=== PATIENT | female | born 1995 | race Caucasian/White ===

== ENCOUNTER 2017-07-08 20:46 | Emergency (ER) | payer MEDICAID ==
[~2017-07-08] VITALS: Ht 160 cm; Wt 65.0 kg
[~2017-07-08 20:46] MED LIST: ACET-1008 PO; ALBU6.7H INH; GUAI120015 PO; LACT1TAB13 PO; PANT20TA2 PO; PANT40SU2 PO
[2017-07-08 23:01] VITALS: BP 113/74
== END 2017-07-08 23:49 | disposition home or self-care (01) ==
LOC: ER 20:47
DX: M77.9 Enthesopathy, unspecified (principal); J45.909 Unspecified asthma, uncomplicated; G89.29 Other chronic pain; F12.10 Cannabis abuse, uncomplicated; Z79.899 Other long term (current) drug therapy
CPT/HCPCS: 99281

== ENCOUNTER 2018-02-12 14:06 | Emergency (ER) | payer MEDICAID ==
[~2018-02-12] VITALS: Ht 160 cm; Wt 57.0 kg
[2018-02-12 14:16] VITALS: BP 97/44
[2018-02-12 14:51] LABS: URINE HCG POSITIVE (NEG)
== END 2018-02-12 15:33 | disposition home or self-care (01) ==
LOC: ER 14:07
DX: O46.91 Antepartum hemorrhage, unspecified, first trimester (principal); J45.909 Unspecified asthma, uncomplicated; G89.29 Other chronic pain; F12.90 Cannabis use, unspecified, uncomplicated; Z3A.01 Less than 8 weeks gestation of pregnancy; Z79.899 Other long term (current) drug therapy
CPT/HCPCS: 81025; 99283

== ENCOUNTER 2018-02-13 22:01 | Emergency (ER) | payer MEDICAID ==
[~2018-02-13] VITALS: Ht 160 cm; Wt 59.0 kg
[2018-02-13 22:29] LABS: BASOPHILS % (AUTO) 0.4 % (0-1); EOSINOPHILS # (AUTO) 0.1 X10'3 (0-0.9); EOSINOPHILS % (AUTO) 1.5 % (0-6); HEMATOCRIT 39.4 % (35.0-45.0); HEMOGLOBIN 13.5 g/dl (12.0-16.0); LYMPHOCYTES % (AUTO) 23.2 % (21-51); MEAN CORPUSCULAR HEMOGLOBIN 29.7 PG (27.0-31.0); MEAN CORPUSCULAR HGB CONC 34.3 % (33.0-36.5); MEAN CORPUSCULAR VOLUME 86.7 FL (78-98); MEAN PLATELET VOLUME 7.3 FL (7.4-10.4); MONOCYTES # (AUTO) 0.3 X10'3 (0-0.9); MONOCYTES % (AUTO) 3.8 % (2-12); NEUTROPHILS # (AUTO) 6.1 X10'3 (1.8-7.7); NEUTROPHILS % (AUTO) 71.1 % (42-75); PLATELET COUNT 283 X10'3 (140-440); RED BLOOD COUNT 4.55 X10'6 (4.20-5.60); RED CELL DISTRIBUTION WIDTH 12.5 % (11.5-14.5); WHITE BLOOD COUNT 8.6 X10'3 (4.5-11.0)
[2018-02-13 23:23] VITALS: BP 119/81
== END 2018-02-13 23:26 | disposition home or self-care (01) ==
LOC: ER 22:02
DX: O46.91 Antepartum hemorrhage, unspecified, first trimester (principal); O26.851 Spotting complicating pregnancy, first trimester; J45.909 Unspecified asthma, uncomplicated; G89.29 Other chronic pain; F12.90 Cannabis use, unspecified, uncomplicated; Z79.899 Other long term (current) drug therapy; Z3A.01 Less than 8 weeks gestation of pregnancy
CPT/HCPCS: 36415; 76801; 85025; 99285

== ENCOUNTER 2018-02-17 08:21 | Emergency (ER) | payer MEDICAID ==
[~2018-02-17] VITALS: Ht 162.6 cm; Wt 55.0 kg
[2018-02-17 08:27] VITALS: BP 90/56
[2018-02-17] MEDS ORDERED: ketorolac trometh inj. 60 MG/2 ML VIAL IM ONE (09:40)
== END 2018-02-17 10:26 | disposition home or self-care (01) ==
LOC: ER 08:22
DX: O20.0 Threatened abortion (principal); O26.891 Other specified pregnancy related conditions, first trimester; J45.909 Unspecified asthma, uncomplicated; G89.29 Other chronic pain; O9A.211 Injury, poisoning and certain other consequences of external causes complicating pregnancy, first trimester; F12.90 Cannabis use, unspecified, uncomplicated; Z79.899 Other long term (current) drug therapy; Z3A.01 Less than 8 weeks gestation of pregnancy
CPT/HCPCS: 36415; 84702; 96372; 99283; J1885

== ENCOUNTER 2018-05-20 19:22 | Emergency (ER) | payer MEDICAID ==
[~2018-05-20] VITALS: Ht 160 cm; Wt 58.0 kg
[2018-05-20 19:28] VITALS: BP 95/54
--- NOTE | 2018-05-20 20:20 | NUR ---
pt asked to provide urine specimen. states she is unable to void. she is drinking water to help promote a void
[2018-05-20 21:31] LABS: URINE HCG NEGATIVE (NEG)
[2018-05-20 21:35] LABS: CLARITY,URINE CLEAR (Clear); COLOR,URINE YELLOW (Yellow); GLUCOSE, URINE NEGATIVE (Neg); KETONES,URINE TRACE mg/dl (Neg); LEUKOCYTE ESTERASE ,URINE NEGATIVE (Neg); NITRITES, URINE NEGATIVE (Neg); OCCULT BLOOD,URINE NEGATIVE (Neg); PROTEIN,URINE NEGATIVE (Neg); UA COLLECTION TYPE CLN CATCH MIDSTREAM; UROBILINOGEN,URINE 0.2 E.U/dL (0.2-1.0)
== END 2018-05-20 22:26 | disposition home or self-care (01) ==
LOC: ER 19:22
DX: Z32.02 Encounter for pregnancy test, result negative (principal); J45.909 Unspecified asthma, uncomplicated; G89.29 Other chronic pain; F17.210 Nicotine dependence, cigarettes, uncomplicated; F12.90 Cannabis use, unspecified, uncomplicated
CPT/HCPCS: 36415; 81003; 81025; 84702; 99283

== ENCOUNTER 2018-10-02 19:04 | Emergency (ER) | payer MEDICAID ==
[~2018-10-02] VITALS: Ht 160 cm; Wt 59.0 kg
[2018-10-02 19:28] VITALS: BP 101/47
[2018-10-02] MEDS ORDERED: ACET-2119 PO (20:12)
[2018-10-02] MEDS ORDERED: ONDA4TAB6 PO (20:12)
[2018-10-02] MEDS ORDERED: IBUP-1985 PO (20:12)
[2018-10-02] MEDS ORDERED: ibuprofen tablet 400 MG TABLET PO ONE (20:30)
== END 2018-10-02 21:03 | disposition home or self-care (01) ==
LOC: ER 19:05
DX: S20.229A Contusion of unspecified back wall of thorax, initial encounter (principal); G89.29 Other chronic pain; F12.10 Cannabis abuse, uncomplicated; J45.909 Unspecified asthma, uncomplicated; R51 Headache; M25.561 Pain in right knee; W01.0XXA Fall on same level from slipping, tripping and stumbling without subsequent striking against object, initial encounter; Y93.89 Activity, other specified; Y92.89 Other specified places as the place of occurrence of the external cause; Y99.8 Other external cause status
CPT/HCPCS: 99282

== ENCOUNTER 2019-03-07 19:07 | Emergency (ER) | payer MEDICAID ==
[~2019-03-07] VITALS: Ht 170.2 cm; Wt 59.1 kg
[~2019-03-07 19:07] MED LIST changes: -ALBU6.7H INH; +ALBU6.7H9 INH; +LIDOcaine 1% w/EPI 1:100,000 30ml vial (MDV) ONE
[2019-03-07] MEDS ORDERED: SULF1TAB49 PO (21:00)
[2019-03-07 21:44] VITALS: BP 108/56
== END 2019-03-07 21:46 | disposition home or self-care (01) ==
LOC: ER 19:08
DX: L02.31 Cutaneous abscess of buttock (principal); J45.909 Unspecified asthma, uncomplicated; G89.29 Other chronic pain; F12.90 Cannabis use, unspecified, uncomplicated; Z79.899 Other long term (current) drug therapy
CPT/HCPCS: 10060; 99283

== ENCOUNTER 2019-03-27 18:06 | Emergency (ER) | payer MEDICAID ==
[~2019-03-27] VITALS: Ht 162.6 cm; Wt 59.9 kg
[~2019-03-27 18:06] MED LIST changes: -LIDOcaine 1% w/EPI 1:100,000 30ml vial (MDV) ONE
[2019-03-27 18:37] LABS: URINE HCG NEGATIVE (NEG)
[2019-03-27 18:39] LABS: CLARITY,URINE CLEAR (Clear); COLOR,URINE YELLOW (Yellow); GLUCOSE, URINE NEGATIVE (Neg); KETONES,URINE NEGATIVE (Neg); LEUKOCYTE ESTERASE ,URINE NEGATIVE (Neg); NITRITES, URINE NEGATIVE (Neg); OCCULT BLOOD,URINE NEGATIVE (Neg); PROTEIN,URINE NEGATIVE (Neg)
[2019-03-27 18:48] LABS: BASOPHILS % (AUTO) 0.5 % (0-1); EOSINOPHILS # (AUTO) 0.1 X10'3 (0-0.9); EOSINOPHILS % (AUTO) 1.5 % (0-6); HEMATOCRIT 41.4 % (35.0-45.0); HEMOGLOBIN 14.2 g/dl (12.0-16.0); LYMPHOCYTES # (AUTO) 2.3 X10'3 (1.1-4.8); LYMPHOCYTES % (AUTO) 27.2 % (21-51); MEAN CORPUSCULAR HEMOGLOBIN 30.3 PG (27.0-31.0); MEAN CORPUSCULAR HGB CONC 34.2 g/dL (33.0-36.5); MEAN CORPUSCULAR VOLUME 88.6 FL (78-98); MEAN PLATELET VOLUME 7.4 FL (7.4-10.4); MONOCYTES # (AUTO) 0.8 X10'3 (0-0.9); MONOCYTES % (AUTO) 8.8 % (2-12); NEUTROPHILS # (AUTO) 5.3 X10'3 (1.8-7.7); PLATELET COUNT 252 X10'3 (140-440); RED BLOOD COUNT 4.68 X10'6 (4.20-5.60); RED CELL DISTRIBUTION WIDTH 13.6 % (11.5-14.5); WHITE BLOOD COUNT 8.5 X10'3 (4.5-11.0)
[2019-03-27 18:53] LABS: UA COLLECTION TYPE CLN CATCH MIDSTREAM
[2019-03-27 19:05] LABS: ALANINE AMINOTRANSFERASE 23 U/L (12-78); ALBUMIN 4.2 G/DL (3.4-5.0); ALBUMIN/GLOBULIN RATIO 1.4 (1.1-1.5); ALKALINE PHOSPHATASE 59 IU/L (46-116); ANION GAP 8 (8-16); ASPARTATE AMINO TRANSFERASE 15 U/L (10-37); BILIRUBIN,TOTAL 1.1 MG/DL (0.1-1.0); BLOOD UREA NITROGEN 16 MG/DL (7-18); CALCIUM 8.4 MG/DL (8.5-10.1); CHLORIDE 106 MMOL/L (99-107); GLUCOSE 96 MG/DL (70-104); POTASSIUM 3.8 MMOL/L (3.5-5.1); SODIUM 139 MMOL/L (135-145); TOTAL CARBON DIOXIDE 25.4 MMOL/L (24-32); TOTAL PROTEIN 7.3 G/DL (6.4-8.2); eGFR 88 ML/MIN
[2019-03-27 19:47] VITALS: BP 106/60
[2019-03-27] MEDS ORDERED: IBUP-1984 PO (20:49)
--- NOTE | 2019-03-27 21:53 | NUR ---
PT DISCHARGED. PT WAS STABLE. V/S. NO S/S OF RESP. DISTRESS. PT LEFT WITH FAMILY MEMBER. IV DC'D. PT TOLERATED WELL. SHE WAS PRESCRIBED IBUPROFIN. NO OTHER REQUEST OR CONCERNS AT THIS TIME.
== END 2019-03-27 21:54 | disposition home or self-care (01) ==
LOC: ER 18:07
DX: R10.2 Pelvic and perineal pain (principal); R10.31 Right lower quadrant pain; J45.909 Unspecified asthma, uncomplicated; G89.29 Other chronic pain; F12.90 Cannabis use, unspecified, uncomplicated; Z79.899 Other long term (current) drug therapy; Z79.1 Long term (current) use of non-steroidal anti-inflammatories (NSAID)
CPT/HCPCS: 36415; 76856; 80053; 81003; 81025; 85025; 99284

== ENCOUNTER 2019-05-13 20:57 | Emergency (ER) | payer MEDICAID ==
[~2019-05-13] VITALS: Ht 160 cm; Wt 60.9 kg
[2019-05-13 21:05] VITALS: BP 107/73
[2019-05-13 22:30] LABS: CLARITY,URINE CLEAR (Clear); COLOR,URINE YELLOW (Yellow); GLUCOSE, URINE NEGATIVE (Neg); KETONES,URINE NEGATIVE (Neg); LEUKOCYTE ESTERASE ,URINE SMALL (Neg); NITRITES, URINE NEGATIVE (Neg); OCCULT BLOOD,URINE NEGATIVE (Neg); PH,URINE 7.5 (4.8-8.0); PROTEIN,URINE NEGATIVE (Neg)
[2019-05-13 22:41] LABS: UA COLLECTION TYPE CLN CATCH MIDSTREAM
[2019-05-13 22:42] LABS: BACTERIA,URINE FEW /HPF (Neg); MUCUS STRANDS FEW /LPF (Neg); RBC,URINE NONE SEEN /HPF (0-2); SQUAMOUS EPITHELIAL CELL,UR FEW /LPF (FEW); WBC,URINE 0-4 /HPF (0-4)
--- NOTE | 2019-05-13 22:47 | NUR ---
Ultrasound is in the room with the patient.
== END 2019-05-14 | disposition home or self-care (01) ==
LOC: ER 20:58
DX: O20.0 Threatened abortion (principal); O99.511 Diseases of the respiratory system complicating pregnancy, first trimester; J45.909 Unspecified asthma, uncomplicated; O99.331 Smoking (tobacco) complicating pregnancy, first trimester; F12.90 Cannabis use, unspecified, uncomplicated; F17.200 Nicotine dependence, unspecified, uncomplicated; O99.321 Drug use complicating pregnancy, first trimester; O26.891 Other specified pregnancy related conditions, first trimester; G89.29 Other chronic pain; Z3A.01 Less than 8 weeks gestation of pregnancy; Z79.899 Other long term (current) drug therapy
CPT/HCPCS: 36415; 76801; 81001; 84702; 87088; 99284

== ENCOUNTER 2019-07-18 11:20 | Emergency (ER) | payer MEDICAID ==
[~2019-07-18] VITALS: Ht 160 cm; Wt 58.5 kg
[2019-07-18 11:21] VITALS: BP 100/55
[2019-07-18] MEDS ORDERED: LIDOcaine 1% W/epiNEPHrine 1:200,000 10ml vial IJ ONE (11:45)
[2019-07-18] MEDS ORDERED: CEPH250T PO (12:43)
== END 2019-07-18 13:21 | disposition home or self-care (01) ==
LOC: ER 11:20
DX: L02.31 Cutaneous abscess of buttock (principal); J45.909 Unspecified asthma, uncomplicated; G89.29 Other chronic pain; F12.90 Cannabis use, unspecified, uncomplicated; Z79.899 Other long term (current) drug therapy
CPT/HCPCS: 10060; 99283

== ENCOUNTER 2020-06-15 04:05 | Emergency (ER) | payer MEDICAID ==
[~2020-06-15] VITALS: Ht 160 cm; Wt 56.1 kg
[2020-06-15 04:13] VITALS: BP 96/61
[2020-06-15] MEDS ORDERED: LIDOcaine 1% W/epiNEPHrine 1:200,000 10ml vial IJ ONE (06:10)
[2020-06-15] MEDS ORDERED: DOXY1TAB3 PO (06:45)
[2020-06-15] MEDS ORDERED: acetaminophen 325mg tablet PO ONE (07:00)
== END 2020-06-15 07:14 | disposition home or self-care (01) ==
LOC: ER 04:06
DX: O98.811 Other maternal infectious and parasitic diseases complicating pregnancy, first trimester (principal); L05.01 Pilonidal cyst with abscess; R11.0 Nausea; H91.90 Unspecified hearing loss, unspecified ear; J45.909 Unspecified asthma, uncomplicated; F12.90 Cannabis use, unspecified, uncomplicated; G89.29 Other chronic pain; Z86.2 Personal history of diseases of the blood and blood-forming organs and certain disorders involving the immune mechanism; Z3A.10 10 weeks gestation of pregnancy
CPT/HCPCS: 10080; 99283

== ENCOUNTER 2020-07-03 16:32 | Emergency (ER) | payer MEDICAID ==
[~2020-07-03] VITALS: Ht 167.6 cm; Wt 61.4 kg
[~2020-07-03 16:32] MED LIST changes: +DOXY1TAB3 PO
[2020-07-03] MEDS ORDERED: ondansetron/PF 4mg/2ml inj IV ONE (17:05)
[2020-07-03] MEDS ORDERED: normal saline 1000ML IV soln IVB ONE (17:05)
[2020-07-03] MEDS ORDERED: OXYTOCIN IM ONE (17:05)
[2020-07-03] MEDS ORDERED: morphine 4 MG/ML inj SYRINge IV PRN (17:05)
[2020-07-03 17:19] LABS: BASOPHILS % (AUTO) 0.3 % (0-1); EOSINOPHILS # (AUTO) 0.1 X10'3 (0-0.9); EOSINOPHILS % (AUTO) 0.8 % (0-6); HEMATOCRIT 31.5 % (35.0-45.0); LYMPHOCYTES # (AUTO) 2.5 X10'3 (1.1-4.8); LYMPHOCYTES % (AUTO) 19.1 % (21-51); MEAN CORPUSCULAR HEMOGLOBIN 30.2 PG (27.0-31.0); MEAN CORPUSCULAR HGB CONC 35.1 g/dL (33.0-36.5); MEAN CORPUSCULAR VOLUME 86.1 FL (78-98); MEAN PLATELET VOLUME 7.9 FL (7.4-10.4); MONOCYTES # (AUTO) 0.7 X10'3 (0-0.9); MONOCYTES % (AUTO) 5.3 % (2-12); NEUTROPHILS # (AUTO) 9.9 X10'3 (1.8-7.7); NEUTROPHILS % (AUTO) 74.5 % (42-75); PLATELET COUNT 240 X10'3 (140-440); RED BLOOD COUNT 3.65 X10'6 (4.20-5.60); WHITE BLOOD COUNT 13.3 X10'3 (4.5-11.0)
[2020-07-03 17:33] LABS: ALANINE AMINOTRANSFERASE 19 U/L (12-78); ALBUMIN 3.7 G/DL (3.4-5.0); ALBUMIN/GLOBULIN RATIO 1.2 (1.1-1.5); ALKALINE PHOSPHATASE 65 IU/L (46-116); ANION GAP 12 (8-16); ASPARTATE AMINO TRANSFERASE 12 U/L (10-37); BILIRUBIN,TOTAL 0.7 MG/DL (0.1-1.0); BLOOD UREA NITROGEN 12 MG/DL (7-18); CALCIUM 8.9 MG/DL (8.5-10.1); CHLORIDE 104 MMOL/L (99-107); GLUCOSE 102 MG/DL (70-104); POTASSIUM 3.7 MMOL/L (3.5-5.1); SODIUM 138 MMOL/L (135-145); TOTAL CARBON DIOXIDE 22.5 MMOL/L (24-32); TOTAL PROTEIN 6.8 G/DL (6.4-8.2); eGFR > 90 ML/MIN
[2020-07-03] MEDS ORDERED: OXYTOCIN IV ONE (17:35)
[2020-07-03] MEDS ORDERED: NORMAL SALINE IV ONE (17:35)
[2020-07-03] MEDS ORDERED: methylergonovine maleate 0.2mg/ml amp IM ONE (17:45)
[2020-07-03 17:55] VITALS: BP 98/64
[2020-07-03 17:55] LABS: BETA HCG,QUANTITATIVE 4731 mIU/ml
--- NOTE | 2020-07-03 18:12 | NUR ---
[facility] transport at bedside.
--- NOTE | 2020-07-03 18:13 | NUR ---
[facility] emergency contact please call with update [phone]
== END 2020-07-03 18:54 | disposition short-term general hospital (02) ==
LOC: ER 18:15
DX: O72.1 Other immediate postpartum hemorrhage (principal); O03.4 Incomplete spontaneous abortion without complication; J45.909 Unspecified asthma, uncomplicated; G89.29 Other chronic pain; F12.90 Cannabis use, unspecified, uncomplicated; Z86.2 Personal history of diseases of the blood and blood-forming organs and certain disorders involving the immune mechanism; Z88.0 Allergy status to penicillin; Z79.899 Other long term (current) drug therapy
CPT/HCPCS: 36415; 76802; 80053; 84702; 85025; 85610; 86885; 86900; 86901; 86920; 96365; 96375; 99291; J2270; J2405; J2590; J7030; J7040

== ENCOUNTER 2020-10-07 17:58 | Emergency (ER) | payer MEDICAID ==
[~2020-10-07] VITALS: Ht 160 cm; Wt 59.7 kg
[2020-10-07 20:41] LABS: CLARITY,URINE CLEAR (Clear); COLOR,URINE YELLOW (Yellow); GLUCOSE, URINE NEGATIVE (Neg); KETONES,URINE NEGATIVE (Neg); LEUKOCYTE ESTERASE ,URINE TRACE (Neg); NITRITES, URINE NEGATIVE (Neg); OCCULT BLOOD,URINE NEGATIVE (Neg); PH,URINE 6.5 (4.8-8.0); PROTEIN,URINE TRACE mg/dl (Neg)
[2020-10-07 20:42] LABS: URINE HCG NEGATIVE (NEG)
[2020-10-07 20:45] LABS: UA COLLECTION TYPE CLN CATCH MIDSTREAM
[2020-10-07 20:49] LABS: BACTERIA,URINE FEW /HPF (Neg); MUCUS STRANDS MANY /LPF (Neg); RBC,URINE NONE SEEN /HPF (0-2); SQUAMOUS EPITHELIAL CELL,UR MODERATE /LPF (FEW)
--- NOTE | 2020-10-07 21:09 | NUR ---
US AT BEDTIME
[2020-10-07] MEDS ORDERED: METR70GE5 VG (21:58)
[2020-10-07 22:04] VITALS: BP 102/80
== END 2020-10-07 22:07 | disposition home or self-care (01) ==
LOC: ER 17:58
DX: N76.0 Acute vaginitis (principal); R10.31 Right lower quadrant pain; N93.9 Abnormal uterine and vaginal bleeding, unspecified; J45.909 Unspecified asthma, uncomplicated; G89.29 Other chronic pain; F12.90 Cannabis use, unspecified, uncomplicated; Z86.2 Personal history of diseases of the blood and blood-forming organs and certain disorders involving the immune mechanism; Z79.2 Long term (current) use of antibiotics; Z79.899 Other long term (current) drug therapy
CPT/HCPCS: 72170; 76856; 81001; 81025; 87088; 87210; 93976; 99285

== ENCOUNTER 2020-10-16 13:27 | Emergency (ER) | payer MEDICAID ==
[~2020-10-16] VITALS: Ht 157.5 cm; Wt 52.3 kg
[~2020-10-16 13:27] MED LIST changes: +METR70GE5 VG
[2020-10-16 14:14] VITALS: BP 96/64
[2020-10-16 14:44] LABS: URINE HCG NEGATIVE (NEG)
[2020-10-16 14:53] LABS: BASOPHILS % (AUTO) 0.3 % (0-1); EOSINOPHILS # (AUTO) 0.1 X10'3 (0-0.9); EOSINOPHILS % (AUTO) 0.7 % (0-6); HEMATOCRIT 38.1 % (35.0-45.0); HEMOGLOBIN 12.3 g/dl (12.0-16.0); LYMPHOCYTES # (AUTO) 1.4 X10'3 (1.1-4.8); LYMPHOCYTES % (AUTO) 18.1 % (21-51); MEAN CORPUSCULAR HEMOGLOBIN 23.5 PG (27.0-31.0); MEAN CORPUSCULAR HGB CONC 32.2 g/dL (33.0-36.5); MEAN CORPUSCULAR VOLUME 72.9 FL (78-98); MEAN PLATELET VOLUME 7.5 FL (7.4-10.4); MONOCYTES # (AUTO) 0.6 X10'3 (0-0.9); MONOCYTES % (AUTO) 7.1 % (2-12); NEUTROPHILS # (AUTO) 5.7 X10'3 (1.8-7.7); NEUTROPHILS % (AUTO) 73.8 % (42-75); PLATELET COUNT 290 X10'3 (140-440); RED BLOOD COUNT 5.23 X10'6 (4.20-5.60); RED CELL DISTRIBUTION WIDTH 21.1 % (11.5-14.5); WHITE BLOOD COUNT 7.7 X10'3 (4.5-11.0)
[2020-10-16 14:55] LABS: CLARITY,URINE SLIGHTLY CLOUDY (Clear); COLOR,URINE YELLOW (Yellow); GLUCOSE, URINE NEGATIVE (Neg); KETONES,URINE TRACE mg/dl (Neg); LEUKOCYTE ESTERASE ,URINE TRACE (Neg); NITRITES, URINE NEGATIVE (Neg); OCCULT BLOOD,URINE NEGATIVE (Neg); PH,URINE 5.5 (4.8-8.0); PROTEIN,URINE NEGATIVE (Neg); UA COLLECTION TYPE CLN CATCH MIDSTREAM; UROBILINOGEN,URINE 0.2 E.U/dL (0.2-1.0)
[2020-10-16 15:03] LABS: BACTERIA,URINE 2+ /HPF (Neg); MUCUS STRANDS MODERATE /LPF (Neg); RBC,URINE NONE SEEN /HPF (0-2); SQUAMOUS EPITHELIAL CELL,UR MODERATE /LPF (FEW)
[2020-10-16 15:04] LABS: ALBUMIN 4.1 G/DL (3.4-5.0); ALBUMIN/GLOBULIN RATIO 1.1 (1.1-1.5); ANION GAP 11 (8-16); ASPARTATE AMINO TRANSFERASE 9 U/L (10-37); BILIRUBIN,TOTAL 0.6 MG/DL (0.1-1.0); BLOOD UREA NITROGEN 7 MG/DL (7-18); BUN/CREATININE RATIO 10.1 (6.6-38.0); CALCIUM 8.8 MG/DL (8.5-10.1); CHLORIDE 103 MMOL/L (99-107); CREATININE 0.69 MG/DL (0.40-0.90); GLUCOSE 76 MG/DL (70-104); POTASSIUM 3.8 MMOL/L (3.5-5.1); SODIUM 141 MMOL/L (135-145); TOTAL CARBON DIOXIDE 26.8 MMOL/L (24-32); TOTAL PROTEIN 7.7 G/DL (6.4-8.2); eGFR > 90 ML/MIN
[2020-10-16 15:05] LABS: ALANINE AMINOTRANSFERASE 18 U/L (12-78); ALKALINE PHOSPHATASE 85 IU/L (46-116); LIPASE 92 U/L (73-393)
--- NOTE | 2020-10-16 15:19 | NUR ---
WENT TO U/S IN FASTTRACK
[2020-10-16 15:34] LABS: PLATELET ESTIMATE NORMAL
[2020-10-16 15:35] LABS: ANISOCYTOSIS 3+; ELLIPTOCYTES FEW; MICROCYTOSIS 1+
[2020-10-16] MEDS ORDERED: CEPH250T PO (15:35)
--- NOTE | 2020-10-16 16:45 | NUR ---
Pt. seen, evaluated, and placed up for discharge by PA before RN intervention.
== END 2020-10-16 16:45 | disposition home or self-care (01) ==
LOC: ER 13:28
DX: N39.0 Urinary tract infection, site not specified (principal); R51.9 Headache, unspecified; R19.7 Diarrhea, unspecified; R10.10 Upper abdominal pain, unspecified; J45.909 Unspecified asthma, uncomplicated; G89.29 Other chronic pain; F12.90 Cannabis use, unspecified, uncomplicated; Z86.2 Personal history of diseases of the blood and blood-forming organs and certain disorders involving the immune mechanism; Z88.0 Allergy status to penicillin; Z79.2 Long term (current) use of antibiotics; Z79.899 Other long term (current) drug therapy
CPT/HCPCS: 76700; 80053; 81001; 81025; 83690; 85008; 85025; 87088; 99284

== ENCOUNTER 2020-11-15 20:01 | Emergency (ER) | payer MEDICAID ==
[~2020-11-15] VITALS: Ht 167.6 cm; Wt 61.4 kg
[2020-11-15 20:54] VITALS: BP 113/65
== END 2020-11-15 20:55 | disposition home or self-care (01) ==
LOC: ER 20:02
DX: S63.502A Unspecified sprain of left wrist, initial encounter (principal); M79.645 Pain in left finger(s); J45.909 Unspecified asthma, uncomplicated; G89.29 Other chronic pain; F12.90 Cannabis use, unspecified, uncomplicated; Z88.0 Allergy status to penicillin; Z79.899 Other long term (current) drug therapy; X58.XXXA Exposure to other specified factors, initial encounter; Y93.89 Activity, other specified; Y92.89 Other specified places as the place of occurrence of the external cause; Y99.8 Other external cause status
CPT/HCPCS: 73110; 99283

== ENCOUNTER 2021-03-05 18:22 | Emergency (ER) | payer MEDICAID ==
[~2021-03-05] VITALS: Ht 160 cm; Wt 137.0 kg
[2021-03-05 18:33] VITALS: BP 134/77
[2021-03-05] MEDS ORDERED: LORazepam 1 MG tablet PO ONE (22:40)
== END 2021-03-05 23:40 | disposition left against medical advice (07) ==
LOC: EEVIPCON 18:23 → ER 18:23
DX: F41.9 Anxiety disorder, unspecified (principal); T42.4X5A Adverse effect of benzodiazepines, initial encounter; J45.909 Unspecified asthma, uncomplicated; G89.29 Other chronic pain; F12.90 Cannabis use, unspecified, uncomplicated; Z86.2 Personal history of diseases of the blood and blood-forming organs and certain disorders involving the immune mechanism; Z79.2 Long term (current) use of antibiotics; Z88.0 Allergy status to penicillin; Z79.899 Other long term (current) drug therapy; Y92.89 Other specified places as the place of occurrence of the external cause
CPT/HCPCS: 99281

== ENCOUNTER 2021-12-08 18:56 | Emergency (ER) | payer MEDICAID ==
[~2021-12-08] VITALS: Ht 160 cm; Wt 64.8 kg
[2021-12-08 19:17] VITALS: BP 117/81
[2021-12-08 20:40] LABS: URINE HCG NEGATIVE (NEG)
[2021-12-08 22:00] LABS: BASOPHILS % (AUTO) 0.4 % (0-1); EOSINOPHILS % (AUTO) 0.6 % (0-6); HEMATOCRIT 43.9 % (35.0-45.0); HEMOGLOBIN 14.8 g/dl (12.0-16.0); LYMPHOCYTES # (AUTO) 1.5 X10'3 (1.1-4.8); LYMPHOCYTES % (AUTO) 27.4 % (21-51); MEAN CORPUSCULAR HEMOGLOBIN 30.2 PG (27.0-31.0); MEAN CORPUSCULAR HGB CONC 33.8 g/dL (33.0-36.5); MEAN CORPUSCULAR VOLUME 89.4 FL (78-98); MEAN PLATELET VOLUME 7.6 FL (7.4-10.4); MONOCYTES # (AUTO) 0.3 X10'3 (0-0.9); MONOCYTES % (AUTO) 4.6 % (2-12); NEUTROPHILS # (AUTO) 3.7 X10'3 (1.8-7.7); PLATELET COUNT 221 X10'3 (140-440); RED BLOOD COUNT 4.92 X10'6 (4.20-5.60); RED CELL DISTRIBUTION WIDTH 12.9 % (11.5-14.5); WHITE BLOOD COUNT 5.5 X10'3 (4.5-11.0)
[2021-12-08 22:07] LABS: HCG SERUM QL NEGATIVE
[2021-12-08 22:18] LABS: ALANINE AMINOTRANSFERASE 39 U/L (12-78); ALBUMIN 4.2 G/DL (3.4-5.0); ALBUMIN/GLOBULIN RATIO 1.1 (1.1-1.5); ALKALINE PHOSPHATASE 67 IU/L (46-116); ANION GAP 9 (8-16); ASPARTATE AMINO TRANSFERASE 28 U/L (10-37); BILIRUBIN,TOTAL 0.7 MG/DL (0.1-1.0); BLOOD UREA NITROGEN 16 MG/DL (7-18); BUN/CREATININE RATIO 27.1 (6.6-38.0); CALCIUM 8.8 MG/DL (8.5-10.1); CHLORIDE 103 MMOL/L (99-107); CREATININE 0.59 MG/DL (0.40-0.90); GLUCOSE 93 MG/DL (70-104); SODIUM 139 MMOL/L (135-145); TOTAL CARBON DIOXIDE 27.1 MMOL/L (24-32); TOTAL PROTEIN 7.9 G/DL (6.4-8.2); eGFR > 90 ML/MIN
[2021-12-08 22:24] LABS: POTASSIUM 4.4 MMOL/L (3.5-5.1)
== END 2021-12-08 22:29 | disposition home or self-care (01) ==
LOC: ER 18:58
DX: R11.2 Nausea with vomiting, unspecified (principal); R19.7 Diarrhea, unspecified; R51.9 Headache, unspecified; Z32.02 Encounter for pregnancy test, result negative; J45.909 Unspecified asthma, uncomplicated; G89.29 Other chronic pain; F41.9 Anxiety disorder, unspecified; F12.10 Cannabis abuse, uncomplicated; Z88.0 Allergy status to penicillin; Z79.899 Other long term (current) drug therapy; Z86.2 Personal history of diseases of the blood and blood-forming organs and certain disorders involving the immune mechanism
CPT/HCPCS: 36415; 80053; 81025; 84703; 85025; 99283